=== PATIENT | female | born 1955 | race Two or more races ===

== ENCOUNTER 2016-08-19 09:03 | Emergency (ER) | payer OTHER ==
[2016-08-19 12:32] VITALS: BP 136/74
== END 2016-08-19 12:32 | disposition home or self-care (01) ==
LOC: ED 09:03
DX: M54.9 Dorsalgia, unspecified (principal); M51.37 Other intervertebral disc degeneration, lumbosacral region; M19.90 Unspecified osteoarthritis, unspecified site
CPT/HCPCS: J1100; J1885

== ENCOUNTER 2016-10-02 10:08 | Emergency (ER) | payer MEDICAID ==
[~2016-10-02] VITALS: Ht 157.5 cm; Wt 65.4 kg
[2016-10-02 11:00] LABS: BASOPHIL % 0.7 % (0-2); PLATELET COUNT 164 x10^3mcL (130-400); RED CELL DISTRIBUTION WIDTH 12.6 % (11.5-14.5)
[2016-10-02 11:13] LABS: CALCIUM 8.8 mg/dL (8.5-10.1); CARBON DIOXIDE 26.1 mmol/L (21-32); CHLORIDE SERUM 107 mmol/L (98-107); CREATININE SERUM 0.7 mg/dL (0.6-1.0); GFR1 > 60 mL/min; GLUCOSE SERUM 102 mg/dL (74-106); POTASSIUM SERUM 4.4 mmol/L (3.5-5.1); SODIUM SERUM 143 mmol/L (136-145)
[2016-10-02 11:19] LABS: ALBUMIN 3.9 g/dL (3.4-5.0); ALKALINE PHOSPHATASE 85 U/L (46-116); ALT/SGPT 66 U/L (14-59); AST/SGOT 50 U/L (15-37); BILIRUBIN TOTAL 0.6 mg/dL (0.20-1.00); TOTAL PROTEIN, SERUM 7.4 g/dL (6.4-8.2)
[2016-10-02 12:26] VITALS: BP 160/86
== END 2016-10-02 12:26 | disposition home or self-care (01) ==
LOC: ED 10:08
PROVIDERS: Specialist
DX: K57.92 Diverticulitis of intestine, part unspecified, without perforation or abscess without bleeding (principal); M19.90 Unspecified osteoarthritis, unspecified site; Z98.890 Other specified postprocedural states
CPT/HCPCS: C9113; J7040

== ENCOUNTER 2017-12-04 15:38 | Emergency (ER) | payer OTHER ==
[~2017-12-04] VITALS: Ht 157.5 cm; Wt 66.2 kg
[2017-12-04 15:44] VITALS: Ht 157.5 cm; Wt 66.2 kg
[2017-12-04 17:35] VITALS: BP 127/80
== END 2017-12-04 17:35 | disposition home or self-care (01) ==
LOC: ED 15:38
DX: R05 Cough (principal); M54.6 Pain in thoracic spine; K59.00 Constipation, unspecified

== ENCOUNTER 2019-06-02 20:13 | Emergency (ER) | payer OTHER, MEDICAID ==
[~2019-06-02] VITALS: Ht 154.9 cm; Wt 66.7 kg
[2019-06-02 20:33] VITALS: Ht 154.9 cm; Wt 66.7 kg
[2019-06-02 22:22] VITALS: BP 117/69
== END 2019-06-02 22:22 | disposition home or self-care (01) ==
LOC: ED 20:13
DX: J06.9 Acute upper respiratory infection, unspecified (principal); H92.01 Otalgia, right ear; M19.90 Unspecified osteoarthritis, unspecified site
CPT/HCPCS: 87804